=== PATIENT | female | born 1965 | race Caucasian/White ===

== ENCOUNTER 2017-05-14 18:28 | Emergency (ER) | payer BC ==
[~2017-05-14] VITALS: Ht 162.6 cm; Wt 92.5 kg
[~2017-05-14 18:28] MED LIST: APAP/HYDROCODON1 T13 PO; CIPRO500 MG PO; COL100 PO; ECO81 PO; FLA500 PO; LAC PO; LIPI10 PO; MAC100 PO; MOTRIN800 MG PO; ZOFRAN ODT4 MG SL
[2017-05-14 20:57] VITALS: BP 140/99
== END 2017-05-14 20:57 | disposition home or self-care (01) ==
LOC: ED 18:28
DX: J20.8 Acute bronchitis due to other specified organisms (principal); L02.212 Cutaneous abscess of back [any part, except buttock and flank]; Z88.6 Allergy status to analgesic agent; Z88.5 Allergy status to narcotic agent
CPT/HCPCS: J2001

== ENCOUNTER 2017-05-17 08:28 | Emergency (ER) | payer BC ==
[~2017-05-17] VITALS: Ht 162.6 cm; Wt 93.0 kg
[2017-05-17 08:39] VITALS: BP 129/84
== END 2017-05-17 10:25 | disposition home or self-care (01) ==
LOC: ED 08:28
DX: Z09 Encounter for follow-up examination after completed treatment for conditions other than malignant neoplasm (principal)